=== PATIENT | male | born 1990 | race African-American/Black ===

== ENCOUNTER 2022-09-13 19:44 | Emergency (ER) | payer SELFPAY ==
[2022-09-13] MEDS ORDERED: Famotidine 20 MG/2 ML SDV IVPUSH ONE (20:57)
[2022-09-13] MEDS ORDERED: Aspirin 81 MG Tab.Chew PO ONE (20:57)
[2022-09-13] MEDS ORDERED: Aluminum Hydroxide/Magnesium Hydroxide/Simethicone XS Susp 30 ML Cup PO ONE (20:58)
[2022-09-13] MEDS ORDERED: cloNIDine 0.1 MG Tab PO ONE (21:02)
[2022-09-13 21:39] LABS: BASOPHILS ABSOLUTE AUTO 0.1 K/uL (0.0-0.1); BASOPHILS PERCENT AUTO 0.9 % (0.0-1.5); EOSINOPHILS ABSOLUTE AUTO 0.3 K/uL (0.0-0.7); EOSINOPHILS PERCENT AUTO 4.8 % (0.0-7.0); HEMATOCRIT 40.5 % (38.0-50.0); HEMOGLOBIN 13.6 g/dL (13.0-17.0); LYMPHOCYTES ABSOLUTE AUTO 2.8 K/uL (0.6-2.4); LYMPHOCYTES PERCENT AUTO 47.7 % (16.0-40.0); MEAN CORPUSCULAR HEMOGLOBIN 29.8 pg (27.0-32.0); MEAN CORPUSCULAR HGB CONC 33.6 g/dL (31.0-37.0); MEAN CORPUSCULAR VOLUME 88.8 fL (80.0-98.0); MONOCYTES ABSOLUTE AUTO 0.5 K/uL (0.0-0.8); MONOCYTES PERCENT AUTO 7.7 % (0.0-15.0); NEUTROPHILS ABSOLUTE AUTO 2.3 K/uL (1.4-5.7); NEUTROPHILS PERCENT AUTO 38.9 % (48.0-80.0); NRBC ABSOLUTE 0 K/uL; PLATELET COUNT,PLT 262 K/uL (150-400); RED BLOOD CELL COUNT 4.56 M/uL (4.50-5.90); WHITE BLOOD CELL COUNT,WBC 5.81 K/uL (4.0-11.0)
[2022-09-13 22:12] LABS: ALBUMIN 3.3 g/dL (3.4-5.0); BILIRUBIN TOTAL 0.4 mg/dL (0.2-1.0); CALCIUM 8.1 mg/dL (8.5-10.1); CARBON DIOXIDE,CO2 26.9 mmol/L (21.0-32.0); CREATININE 1.1 mg/dL (0.8-1.3); EST CRCL DRUG DOSING (CG) 119.46 mL/min; POTASSIUM,K 3.8 mmol/L (3.5-5.1); PROTEIN TOTAL,TP 7.2 g/dL (6.4-8.2)
[2022-09-13 22:17] LABS: A/G RATIO 0.9 (0.9-1.6)
== END 2022-09-13 22:25 | disposition home or self-care (01) ==
LOC: MW.ED 19:44
DX: R07.89 Other chest pain (principal); F17.210 Nicotine dependence, cigarettes, uncomplicated; E66.01 Morbid (severe) obesity due to excess calories; Z68.42 Body mass index [BMI] 45.0-49.9, adult
CPT/HCPCS: 36415; 71045; 80053; 83690; 84484; 85025; 93005; 96374; 99285; A9270; J3490; 93010; 99284

== ENCOUNTER 2024-07-08 17:20 | Emergency (ER) | payer SELFPAY ==
[2024-07-08 18:05] LABS: BILIRUBIN,URINE NEGATIVE (NEGATIVE); COLOR,URINE YELLOW; GLUCOSE,URINE >=1000 mg/dL (NEGATIVE); KETONES,URINE TRACE mg/dL (NEGATIVE); LEUKOCYTE ESTERASE,URINE NEGATIVE (NEGATIVE); NITRITE,URINE NEGATIVE (NEGATIVE); OCCULT BLOOD,URINE SMALL (NEGATIVE); PH,URINE 5.5 (5.0-8.0); PROTEIN,URINE TRACE mg/dL (NEGATIVE); UROBILINOGEN,URINE 0.2 EU/dL (<2.0)
[2024-07-08 18:11] LABS: BASOPHILS ABSOLUTE AUTO 0.09 K/uL (0.00-0.20); BASOPHILS PERCENT AUTO 1.1 % (0.0-1.0); EOSINOPHILS ABSOLUTE AUTO 0.32 K/uL (0.00-0.45); EOSINOPHILS PERCENT AUTO 3.9 % (0.0-6.0); HEMATOCRIT 44.2 % (42.0-52.0); HEMOGLOBIN 15.3 g/dL (14.0-18.0); IMMATURE GRAN ABSOLUTE AUTO 0.02 K/uL (0.00-0.05); IMMATURE GRAN PERCENT AUTO 0.2 % (0.0-0.4); LYMPHOCYTES ABSOLUTE AUTO 3.55 K/uL (1.00-4.80); LYMPHOCYTES PERCENT AUTO 43.8 % (24.0-44.0); MEAN CORPUSCULAR HEMOGLOBIN 29.7 pg (28.0-32.0); MEAN CORPUSCULAR HGB CONC 34.6 g/dL (32.0-36.0); MEAN CORPUSCULAR VOLUME 85.8 fL (83.0-99.0); MEAN PLATELET VOLUME 9.9 fL (9.4-12.4); MONOCYTES ABSOLUTE AUTO 0.51 K/uL (0.00-0.80); MONOCYTES PERCENT AUTO 6.3 % (0.0-8.0); NEUTROPHILS ABSOLUTE AUTO 3.62 K/uL (1.80-7.70); NEUTROPHILS PERCENT AUTO 44.7 % (41.0-71.0); PLATELET COUNT,PLT 306 K/uL (150-400); RED BLOOD CELL COUNT 5.15 M/uL (4.52-5.90); WHITE BLOOD CELL COUNT,WBC 8.11 K/uL (3.9-11.3)
[2024-07-08 18:17] LABS: APPEARANCE,URINE HAZY
[2024-07-08 18:32] LABS: RBC,URINE 0-2 (0-2/HPF); WBC,URINE 0-2 (0-5/HPF)
[2024-07-08 18:33] LABS: BACTERIA,URINE RARE (NEGATIVE); MUCUS,URINE LIGHT (NONE-MOD); SQUAMOUS EPITHELIAL CELLS,UR FEW
[2024-07-08 18:54] LABS: ALBUMIN 4.1 g/dL (3.4-5.0); BILIRUBIN TOTAL 0.4 mg/dL (0.2-1.0); CALCIUM 9.1 mg/dL (8.5-10.1); CREATININE 1.4 mg/dL (0.8-1.3); PROTEIN TOTAL,TP 8.2 g/dL (6.4-8.2); TSH ULTRASENSITIVE 1.62 uIU/mL (0.36-3.74)
[2024-07-08 19:25] LABS: HEMOGLOBIN A1C 9.8 %
== END 2024-07-08 19:51 | disposition home or self-care (01) ==
LOC: MW.ED 17:20
DX: E11.9 Type 2 diabetes mellitus without complications (principal); F17.200 Nicotine dependence, unspecified, uncomplicated; Z75.8 Other problems related to medical facilities and other health care
CPT/HCPCS: 36415; 80053; 81001; 83036; 84443; 85025; 99283